=== PATIENT | female | born 1990 | race African-American/Black ===

== ENCOUNTER 2021-01-21 10:03 | Emergency (ER) | payer MEDICAID, OTHER ==
[~2021-01-21] VITALS: Ht 157.5 cm; Wt 54.4 kg
[2021-01-21 10:14] VITALS: BP 113/67
[2021-01-21 10:50] LABS: Basophils # (auto) 0 10 ^3/uL (0-0.2); Basophils % (auto) 0.3 % (0.0-2.0); Eosinophils # (auto) 0.1 10 ^3/uL (0-0.8); Eosinophils % (auto) 1.7 % (0.0-7.0); Hematocrit 33.2 % (36.0-46.0); Hemoglobin 11.5 g/dL (12.2-16.2); Lymphocytes # (auto) 1.9 10 ^3/uL (0.4-5.4); Lymphocytes % (auto) 30.6 % (10.0-50.0); Mean Corpuscular Hemoglobin 29.2 pg (28.0-32.0); Mean Corpuscular Hgb Conc. 34.7 g/dL (32.0-36.0); Mean Corpuscular Volume 84.4 fL (80.0-100.0); Monocytes # (auto) 0.6 10 ^3/uL (0-1.3); Monocytes % (auto) 9.2 % (0.0-12.0); Neutrophils # (auto) 3.7 10 ^3/uL (1.6-8.6); Neutrophils % (auto) 58.2 % (37.0-80.0); Platelet Count (auto) 178 10^3/uL (140-450); Red Blood Cells 3.93 10^6/uL (4.0-5.20); Red Cell Distribution Width 13.8 % (11.8-14.3); White Blood Cell 6.3 10^3/uL (4.4-10.8)
[2021-01-21 10:54] LABS: Albumin 3.5 g/dL (3.4-5.0); Calcium 8.5 mg/dL (8.5-10.1); Potassium 3.7 mmol/L (3.5-5.1)
[2021-01-21 11:04] LABS: BUN/Creatinine Ratio 10.6; Bilirubin, Total 0.2 mg/dL (0.2-1.0); Total Protein 6.8 g/dL (6.4-8.2)
[2021-01-21 11:30] LABS: Urine Bacteria FEW /hpf (None Seen); Urine Blood Negative /uL (Negative); Urine Mucus FEW (None Seen); Urine Specific Gravity 1.022 (1.001-1.035); Urine WBC 2 /hpf (0 - 5)
[2021-01-21] MEDS ORDERED: ACETAMINOPHEN 325 MG TAB PO ONE (12:45)
== END 2021-01-21 12:43 | disposition home or self-care (01) ==
LOC: ER 10:03
DX: O20.0 Threatened abortion (principal); O20.9 Hemorrhage in early pregnancy, unspecified; Z3A.01 Less than 8 weeks gestation of pregnancy
CPT/HCPCS: 36415; 76801; 80053; 81001; 84702; 85025

== ENCOUNTER 2021-08-30 21:57 | Inpatient (IN) | payer MEDICAID ==
[2021-08-30] MEDS ORDERED: BUTORPHANOL TARTRATE 2 MG/1 ML VIAL IV PRN ×2 (22:30)
[2021-08-30] MEDS ORDERED: WITCH HAZEL-GLYCERIN PAD TOP PRN (22:30)
[2021-08-30] MEDS ORDERED: DERMOPLAST 60ML BOTTLE TOP PRN (22:30)
[2021-08-30] MEDS ORDERED: PROMETHAZINE HCL 25 MG/ML 1ML IV PRN (22:30)
[2021-08-30] MEDS ORDERED: miSOPROStol 50 MCG per PRE-CUT 1/2 TAB PO PRN (22:30)
[2021-08-30] MEDS ORDERED: LIDOCAINE 2%HCL (LOCAL ANESTH.) INJ 20ML MDV IJ PRN (22:30)
[2021-08-30] MEDS ORDERED: PENICILLIN G POT 5MIL/D5 50ML 50 ML IV ONE (22:30)
[2021-08-30] MEDS ORDERED: PHISODERM TOP SOLN 240ML BTL TOP PRN (22:30)
[2021-08-30] MEDS: LACTATED RINGER'S 1,000 ML IV SCH (23:13)
[2021-08-30 23:54] LABS: Urine Bacteria NONE SEEN /hpf (None Seen); Urine Blood Negative /uL (Negative); Urine Specific Gravity 1.019 (1.001-1.035); Urine WBC 2 /hpf (0 - 5)
[2021-08-31 00:46] LABS: Amphetamine Screen, Urine NEGATIVE (NEGATIVE); Barbiturate Scree,Urine NEGATIVE (NEGATIVE); Benzodiazephine Screen, Urine NEGATIVE (NEGATIVE); Cannabinoid Screen, Urine POSITIVE (NEGATIVE); Cocaine Screen, Urine NEGATIVE (NEGATIVE); Opiate Scree,Urine NEGATIVE (NEGATIVE); Phencyclidine Screen, Urine NEGATIVE (NEGATIVE)
[2021-08-31] MEDS ORDERED: LIDOCAINE HCL 2 %PF INJ 10ML AMP IJ ONE (01:15)
[2021-08-31] MEDS ORDERED: LACTATED RINGER'S 1,000 ML IV ONE (01:15)
[2021-08-31] MEDS ORDERED: ROPIVACAINE HCL 200 ML EPI SCH (01:15)
[2021-08-31] MEDS ORDERED: NALOXONE HCL 0.4 MG/ML VIAL IV ONE (01:15)
[2021-08-31] MEDS ORDERED: ePHEDrine SULFATE 50 MG/ML AMP IV ONE (01:15)
[2021-08-31] MEDS ORDERED: fentaNYL CITRATE 100 MCG/2 ML VL IV ONE (01:15)
[2021-08-31] MEDS ORDERED: ONDANSETRON HCL 4 MG/2 ML VIAL IV ONE (02:00)
[2021-08-31] MEDS ORDERED: PENICILLIN G POT 5MILLION UNIT VIAL ONE (05:02)
[2021-08-31] MEDS: PENICILLIN G POTASSIUM 2,500,000 UNITS in D5W 5% 50 ML IV SCH ×3 (05:14→13:32)
[2021-08-31] MEDS ORDERED: TERBUTALINE SULFATE 1 MG/ML 1ML VIAL SC PRN (05:30)
[2021-08-31] MEDS ORDERED: LACT. RINGERS/OXYTOCIN 20UNITS 500 ML IV ONE ×2 (05:30→06:00)
[2021-08-31] MEDS: LACT. RINGERS/OXYTOCIN 20UNITS 1,000 ML IV SCH ×2 (06:08→07:53)
[2021-08-31] MEDS ORDERED: LACT. RINGERS/OXYTOCIN 20UNITS 1,000 ML IV SCH (07:00)
[2021-08-31] MEDS: LACTATED RINGER'S 1,000 ML IV SCH (13:52)
[2021-08-31] MEDS ORDERED: miSOPROStol 100 mcg TAB PR PRN (15:00)
[2021-08-31] MEDS ORDERED: METHYLERGONOVINE MALEATE 0.2 MG/ML AMP IM PRN (15:00)
[2021-08-31] MEDS ORDERED: miSOPROStol 100 mcg TAB SL PRN (15:00)
[2021-08-31] MEDS ORDERED: CARBOPROST TROMETHAMINE 250 MCG/1ML VIAL IM PRN (15:00)
[2021-08-31] MEDS: IBUPROFEN 600 MG TAB PO PRN (16:44)
[2021-08-31 19:00] VITALS: BP 117/68
[2021-08-31] MEDS: ACETAMINOPHEN 325 MG TAB PO PRN (22:19)
[2021-08-31 23:00] VITALS: BP 120/75
[2021-09-01] MEDS ORDERED: TETANUS-DIPTH-ACEL PERTUSSIS 0.5ML SYR Tdap IM ONE (01:45)
[2021-09-01 03:00] VITALS: BP 107/67
[2021-09-01] MEDS: IBUPROFEN 600 MG TAB PO PRN (06:46)
[2021-09-01 07:00] VITALS: BP 127/82
[2021-09-01] MEDS: ACETAMINOPHEN 325 MG TAB PO PRN (09:21)
[2021-09-01 10:32] VITALS: BP 125/77
[2021-09-01 15:30] VITALS: BP 138/78
[2021-09-01 19:00] VITALS: BP 120/85
== END 2021-09-01 21:09 | disposition home or self-care (01) | DRG 542 ==
LOC: LDRP 21:57
PROVIDERS: ADMIT Obstetrics & Gynecology; ATTEND Obstetrics & Gynecology
PROC: 3E0DXGC Introduction of Other Therapeutic Substance into Mouth and Pharynx, External Approach (ICD-10-PCS; 2021-08-30)
PROC: 10E0XZZ Delivery of Products of Conception, External Approach (ICD-10-PCS; principal; 2021-08-31)
PROC: 0TQDXZZ Repair Urethra, External Approach (ICD-10-PCS; 2021-08-31)
PROC: 3E0R3BZ Introduction of Anesthetic Agent into Spinal Canal, Percutaneous Approach (ICD-10-PCS; 2021-08-31)
PROC: 00HU33Z Insertion of Infusion Device into Spinal Canal, Percutaneous Approach (ICD-10-PCS; 2021-08-31)
PROC: 3E0234Z Introduction of Serum, Toxoid and Vaccine into Muscle, Percutaneous Approach (ICD-10-PCS; 2021-09-01)
DX: O71.5 Other obstetric injury to pelvic organs (principal); Z37.0 Single live birth; Z20.822 Contact with and (suspected) exposure to COVID-19; Z3A.39 39 weeks gestation of pregnancy; Z23 Encounter for immunization
CPT/HCPCS: 36415; 59025; 59409; 62282; 80307; 81001; 81002; 87426; 90715; 94760; 96360; 96361; 96365; 96366; 96372; 96374; G0378; J2405; J2540; J2590; J7060